=== PATIENT | female | born 1995 | race Caucasian/White ===

== ENCOUNTER 2022-04-26 13:37 | Emergency (ER) | payer OTHER ==
[2022-04-26 13:52] VITALS: BP 102/68; PULSE 87; RESP 19; TEMP 98.6; BMI 22.3
== END 2022-04-26 14:44 | disposition home or self-care (01) ==
LOC: JER 13:37 → JERFT 13:37
DX: F41.9 Anxiety disorder, unspecified (principal)
CPT/HCPCS: 99283-25

== ENCOUNTER 2022-07-24 11:21 | Emergency (ER) | payer OTHER ==
[2022-07-24 11:32] VITALS: BP 103/60; PULSE 95; RESP 19; TEMP 98.6; BMI 24.0
[2022-07-24] MEDS ORDERED: SODIUM CHLORIDE 0.9% 500 ML INFUS.BAG IV ONE (12:23)
[2022-07-24 12:59] LABS: BASO % 0.4 % (0-2.0); EOS % 0.7 % (0-4.5); HEMATOCRIT 35.5 % (32.4-45.2); HEMOGLOBIN 11.8 GM/dL (10.7-15.3); LYMPH % 21.7 % (8-40); MCH 29.4 pg (25.7-33.7); MCHC 33.3 g/dl (32.0-36.0); MEAN CELL VOLUME 88.2 fl (80-96); MEAN PLT VOLUME 7.6 fl (7.5-11.1); MONO % 6.2 % (3.8-10.2); PLATELET COUNT 251 10^3/uL (134-434); RBC 4.02 M/mm3 (3.60-5.2); RDW 13.7 % (11.6-15.6); WHITE BLOOD COUNT 8.9 K/mm3 (4.0-10.0)
[2022-07-24 13:01] LABS: HCG,QUALITATIVE URINE Positive
[2022-07-24 13:06] LABS: EPI CELLS >36 /uL (0-25.1); HYALINE CASTS 4 /uL (0-3.1); PH,URINE 5.5 (5.0-8.0); URINE APPEARANCE CLOUDY; URINE BACTERIA 836 /uL (0-1359); URINE BILIRUBIN NEGATIVE (NEGATIVE); URINE COLOR YELLOW; URINE GLUCOSE (UA) NEGATIVE (NEGATIVE); URINE KETONE NEGATIVE (NEGATIVE); URINE LEUK ESTERASE 1+ (NEGATIVE); URINE NITRITE NEGATIVE (NEGATIVE); URINE PROTEIN TRACE (NEGATIVE); URINE RBC 18 /uL (0-23.9); URINE UROBILINOGEN 0.2 mg/dL (0.2-1.0); URINE WBC 253 /uL (0-25.8)
[2022-07-24 13:07] LABS: INR 0.99 (0.83-1.09); PROTHROMBIN TIME (PATIENT) 11.4 SEC (9.7-13.0)
[2022-07-24 13:10] LABS: ACTIVATED PTT 27.9 SECONDS (25.2-36.5)
[2022-07-24 13:24] LABS: CALCIUM 8.4 mg/dL (8.5-10.1)
[2022-07-24 13:25] LABS: BLOOD UREA NITROGEN 7.3 mg/dL (7-18)
[2022-07-24 13:29] LABS: BILIRUBIN,TOTAL 0.4 mg/dL (0.2-1); CREATININE 0.3 mg/dL (0.55-1.3)
[2022-07-24 13:31] LABS: TOT PROT 6.5 g/dl (6.4-8.2)
[2022-07-24 13:33] LABS: N-TERMINAL BNP 108.4 pg/ml (5-125)
== END 2022-07-24 14:56 | disposition home or self-care (01) ==
LOC: JER 11:21
DX: R55 Syncope and collapse (principal)
CPT/HCPCS: 0241U-QW; 36415; 80053; 81003; 83735; 83880; 84484; 84703; 85025; 85610; 85730; 86850; 86900; 86901; 87086; 93005; 93010; 99284-25

== ENCOUNTER 2022-12-24 09:20 | Inpatient (IN) | payer OTHER ==
[2022-12-24] MEDS: ELECTROLYTE-148 SOLN 1,000 ML IV SCH ×2 (10:00→19:10)
[2022-12-24 10:06] VITALS: BMI 29.2
[2022-12-24 10:50] LABS: BASO % 0.4 % (0-2.0); EOS % 0.3 % (0-4.5); HEMATOCRIT 37.3 % (32.4-45.2); HEMOGLOBIN 12.9 GM/dL (10.7-15.3); LYMPH % 22.1 % (8-40); MCH 30.2 pg (25.7-33.7); MCHC 34.5 g/dl (32.0-36.0); MEAN CELL VOLUME 87.5 fl (80-96); MEAN PLT VOLUME 9.8 fl (7.5-11.1); MONO % 7.1 % (3.8-10.2); NEUT % 70.1 % (42.8-82.8); PLATELET COUNT 188 10^3/uL (134-434); RBC 4.26 M/mm3 (3.60-5.2); RDW 13.6 % (11.6-15.6); WHITE BLOOD COUNT 9.3 K/mm3 (4.0-10.0)
[2022-12-24 10:53] LABS: INR 0.97 (0.83-1.09); PROTHROMBIN TIME (PATIENT) 11.2 SEC (9.7-13.0)
[2022-12-24 10:56] LABS: ACTIVATED PTT 24.6 SECONDS (25.2-36.5)
[2022-12-24 11:02] LABS: POTASSIUM 3.9 mmol/L (3.5-5.1)
[2022-12-24 11:03] LABS: CALCIUM 8.8 mg/dL (8.5-10.1)
[2022-12-24 11:04] LABS: BLOOD UREA NITROGEN 9.9 mg/dL (7-18)
[2022-12-24 11:07] LABS: CREATININE 0.4 mg/dL (0.55-1.3)
[2022-12-24] MEDS ORDERED: DINOPROSTONE 10 MG VAGINAL SUPPOSITORY VG STA (11:44)
[2022-12-24 12:51] LABS: PHENCYCLIDINE,URINE NEGATIVE (NEGATIVE)
[2022-12-24 12:52] LABS: COCAINE, UR NEGATIVE (NEGATIVE); METHADONE, UR NEGATIVE (NEGATIVE); OPIATES, URI NEGATIVE (NEGATIVE); URINE AMPHETAMINES NEGATIVE (NEGATIVE)
[2022-12-24 12:54] LABS: URINE BARBITURATES NEGATIVE (NEGATIVE); URINE BENZODIAZEPINES NEGATIVE (NEGATIVE)
[2022-12-24 12:54] LABS: HIV INTERPRETATION NEGATIVE (NEGATIVE)
[2022-12-25] MEDS: ELECTROLYTE-148 SOLN 1,000 ML IV SCH ×3 (00:19→09:15)
[2022-12-25] MEDS ORDERED: BUTORPHANOL TARTRATE 1 MG/ML VIAL IVPB ONE ×2 (01:55→05:45)
[2022-12-25] MEDS ORDERED: PROMETHAZINE HCL 25 MG/1 ML VIAL IVPB ONE (01:55)
[2022-12-25] MEDS ORDERED: DINOPROSTONE 10 MG VAGINAL SUPPOSITORY VG ONE (02:00)
[2022-12-25] MEDS ORDERED: OXYTOCIN 30 UNITS in 0.9% NS 30 UNIT/500 ML INFUS.BAG IVPB SCH (02:15)
[2022-12-25] MEDS ORDERED: OXYTOCIN 30 UNITS in 0.9% NS 30 UNIT/500 ML INFUS.BAG IVPB ONE (03:12)
[2022-12-25] MEDS ORDERED: PROMETHAZINE HCL 25 MG/1 ML VIAL ONE (03:49)
[2022-12-25] MEDS ORDERED: BUTORPHANOL TARTRATE 1 MG/ML VIAL ONE ×2 (03:49→06:00)
[2022-12-25] MEDS ORDERED: AMPICILLIN - 2 GM in SODIUM CHLORIDE 100 ML IVPB ONE (07:20)
[2022-12-25] MEDS ORDERED: FENTANYL/BUPIVACAINE/NS/PF - PCEA - 50 ML DISP.SYRIN EP ONE ×3 (07:23→12:36)
[2022-12-25] MEDS ORDERED: AMPICILLIN SODIUM 2 GM VIAL ONE (07:30)
[2022-12-25] MEDS ORDERED: OXYTOCIN 20 UNITS in 0.9% NS 20 UNIT/1,000 ML INFUS.BAG IV ONE (07:33)
[2022-12-25] MEDS ORDERED: AMPICILLIN - 1 GM in SODIUM CHLORIDE 100 ML IVPB SCH (07:45)
[2022-12-25] MEDS: FENTANYL/BUPIVACAINE/NS/PF - PCEA - 50 ML DISP.SYRIN EP SCH ×3 (08:00→12:40)
[2022-12-25] MEDS ORDERED: FENTANYL CITRATE/PF 50 MCG/ML VIAL ONE (08:06)
[2022-12-25] MEDS ORDERED: NALOXONE HCL 0.4 MG/ML VIAL IVPUSH PRN (08:11)
[2022-12-25] MEDS ORDERED: AMPICILLIN SODIUM 1 GM VIAL ONE (11:48)
[2022-12-25] MEDS: AMPICILLIN - 1 GM in SODIUM CHLORIDE 100 ML IVPB SCH ×3 (11:50→19:35)
[2022-12-25] MEDS ORDERED: BISACODYL 10 MG SUPP.RECT RC PRN (14:16)
[2022-12-25] MEDS ORDERED: WITCH HAZEL 50% (TUCKS) 40 PAD/JAR PAD TP PRN (14:16)
[2022-12-25] MEDS ORDERED: BENZOCAINE 20% 57 GM BOTTLE TP PRN (14:16)
[2022-12-25] MEDS ORDERED: ACETAMINOPHEN 325 MG TABLET (FP) PO PRN (14:16)
[2022-12-25] MEDS ORDERED: METHYLERGONOVINE MALEATE 0.2 MG/1 ML AMP IM PRN (14:16)
[2022-12-25] MEDS ORDERED: BENZOCAINE 28 GM HEMORRHOIDAL OINTMENT TP PRN (14:16)
[2022-12-25] MEDS ORDERED: OXYTOCIN 20 UNITS in 0.9% NS 20 UNIT/1,000 ML INFUS.BAG IV SCH (14:30)
[2022-12-25] MEDS: IBUPROFEN 600 MG TABLET (FP) PO PRN (20:02)
[2022-12-25 22:44] VITALS: RESP 18
[2022-12-26] MEDS: IBUPROFEN 600 MG TABLET (FP) PO PRN ×3 (01:56→20:45)
[2022-12-26 07:41] LABS: BASO % 0.4 % (0-2.0); EOS % 0.8 % (0-4.5); HEMATOCRIT 32.5 % (32.4-45.2); HEMOGLOBIN 10.9 GM/dL (10.7-15.3); MCHC 33.6 g/dl (32.0-36.0); MEAN CELL VOLUME 89.2 fl (80-96); MEAN PLT VOLUME 8.9 fl (7.5-11.1); MONO % 5.6 % (3.8-10.2); NEUT % 74.2 % (42.8-82.8); PLATELET COUNT 182 10^3/uL (134-434); RBC 3.64 M/mm3 (3.60-5.2); RDW 13.6 % (11.6-15.6); WHITE BLOOD COUNT 12.4 K/mm3 (4.0-10.0)
[2022-12-26] MEDS: PRENATAL VITAMINS W/ FOLIC ACID TABLET (FP) PO SCH (09:54)
[2022-12-26] MEDS ORDERED: SENNOSIDES/DOCUSATE COMBO (SENNA PLUS) TABLET (UD) PO PRN (22:00)
[2022-12-27] MEDS: IBUPROFEN 600 MG TABLET (FP) PO PRN (06:30)
[2022-12-27] MEDS: PRENATAL VITAMINS W/ FOLIC ACID TABLET (FP) PO SCH (09:28)
[2022-12-27 11:13] VITALS: BP 112/74; PULSE 89; TEMP 98.5
== END 2022-12-27 12:17 | disposition home or self-care (01) | DRG 560 ==
LOC: JDEL 09:20 → JLDR 09:45 → J3W 12-25 16:52
PROVIDERS: ADMIT Student in an Organized Health Care Education/Training Program; ATTEND Student in an Organized Health Care Education/Training Program
PROC: 3E0P7VZ Introduction of Hormone into Female Reproductive, Via Natural or Artificial Opening (ICD-10-PCS; 2022-12-24)
PROC: 10E0XZZ Delivery of Products of Conception, External Approach (ICD-10-PCS; principal; 2022-12-25)
PROC: 0HQ9XZZ Repair Perineum Skin, External Approach (ICD-10-PCS; 2022-12-25)
PROC: 0W8NXZZ Division of Female Perineum, External Approach (ICD-10-PCS; 2022-12-25)
DX: O70.0 First degree perineal laceration during delivery (principal); Z3A.39 39 weeks gestation of pregnancy; Z37.0 Single live birth
CPT/HCPCS: 36415; 59025; 80048; 80307; 83036; 85025; 85610; 85730; 86780; 86850; 86900; 86901; 87340; 87389; 87635

== ENCOUNTER 2023-10-07 15:50 | Emergency (ER) | payer OTHER ==
[2023-10-07 15:58] VITALS: BP 114/71; PULSE 93; RESP 18; TEMP 98.4; BMI 26.9
[2023-10-07] MEDS ORDERED: ACETAMINOPHEN 500 MG TABLET (FP) ONE (16:29)
[2023-10-07] MEDS: ACETAMINOPHEN 500 MG TABLET (FP) PO ONE (16:35)
== END 2023-10-07 17:39 | disposition home or self-care (01) ==
LOC: JERFT 15:50
DX: R09.81 Nasal congestion (principal); R09.89 Other specified symptoms and signs involving the circulatory and respiratory systems; R05.9 Cough, unspecified; R07.0 Pain in throat; B34.9 Viral infection, unspecified; Z20.822 Contact with and (suspected) exposure to COVID-19
CPT/HCPCS: 0241U-QW; 99283-25

== ENCOUNTER 2023-12-09 10:01 | Emergency (ER) | payer OTHER ==
[2023-12-09 10:20] VITALS: TEMP 98.6; BMI 26.7
[2023-12-09 10:57] VITALS: BP 115/79; PULSE 76; RESP 18
== END 2023-12-09 11:55 | disposition home or self-care (01) ==
LOC: JER 10:01
DX: R51.9 Headache, unspecified (principal); H53.8 Other visual disturbances
CPT/HCPCS: 99282-25